=== PATIENT | female | born 2000 | race African-American/Black ===

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

== ENCOUNTER 2022-01-28 17:56 | Emergency (ER) | payer OTHER, SELFPAY ==
--- NOTE | 2022-01-28 18:05 | ED.EYEPROB ---
HPI - Eye Problem General Chief complaint: Eye Problems Stated complaint: right eye swelling/dryness Time Seen by Provider: 01/28/22 18:05 Source: patient Mode of arrival: ambulatory Limitations: no limitations History of Present Illness HPI Narrative: 21 y/o female presented for c/o right eye swelling for about 1 hour [employer]. States she was sitting down when she felt mild itching to the eye, she rubbed the eye then saw in the mirror the eye was swollen. Endorses frequent tearing. Denies continued itching, pain, denies FB sensation, photophobia or visual changes. She does not wear contact lenses. Denies sick contacts. Wears false eyelashes, but states she has had them in place for about 2 weeks. History of seasonal allergies and takes Gladys occasionally. chief complaint: eye pain Related Data Allergies Allergy/AdvReac Type Severity Reaction Status Date / Time No Known Allergies Allergy Verified 01/09/20 10:53 Review of Systems Review of Systems: CONSTITUTIONAL: Denies body aches, fever, chills EYES:Endorses swelling right eye ENT: Denies rhinorrhea, congestion, sore throat, or otalgia. CARDIOVASCULAR: Denies chest pain, palpitations RESPIRATORY: Denies cough or dyspnea. SKIN: Denies rash, itching, or wounds. NEUROLOGIC: Denies headache, numbness, tingling, or weakness. All systems reviewed & are unremarkable except as noted in HPI and below PMFSH Past Medical History Medical History No significant past medical history Surgical History Surgical History No significant past surgical history Family History Family History Father Diabetes mellitus Heart disease Hypertension Mother Alive and well Social History Social History Tobacco type: cigarettes Second hand tobacco smoke exposure: No Alcohol intake: never Substance use: never Gender identity (if verbalized by the patient): Female Sexual Orientation (if Verbalized by the Patient): Straight or Heterosexual Comments At time of signature, I have reviewed and agree with nursing past medical, surgical, social and family history unless otherwise noted. Please see nursing chart for further information. There is no relevant family history pertinent to the presenting complaint Exam Narrative: GENERAL: Well-appearing HEAD: Normocephalic, atraumatic. EYES: Right periorbital swelling without occlusion, clear drainage/ tearing; no conjunctival injection. EOMI. PERRLA. Lid eversion shows no FB. ENT: Mucous membranes pink and moist. No rhinorrhea. SKIN: Warm, dry, no rash. Normal skin turgor. NEURO: Alert and oriented x3 PSYCH: Normal affect. Course Course Emergency Course: Patient is aware of diagnosis, understands and agrees to treatment plan. Anticipatory guidance given. Patient agrees to follow-up as directed and is aware of reasons to seek care at the emergency department. Portions of this record may have been created with voice recognition software Level of Care: Express Care Visit MDM - Eye Problem MDM Narrative Medical decision making narrative: No apparent conjunctivitis or purulent drainage. Advised supportive measures, Rx steroid and will take benadryl prn. Reviewed s/s to go to the ER. v/u. She is stable and appropriate for outpt treatment and f/u. Differential Diagnosis Differential diagnosis: Likely corneal abrasion, conjunctivitis, acute iritis, periorbital cellulitis and other Discharge Plan Discharge Clinical Impression: Periorbital swelling Patient Disposition: Home, Self-Care Condition: Stable Additional Instructions: Avoid touching or rubbing your eye. Use over the counter lubricating eye drops as needed for irritation Use a cool washcloth/ice pack on your eye for comfort You m
[2022-01-28 18:06] VITALS: BP 126/82; PULSE 88; RESP 20; TEMP 37.1; O2SAT 100
== END 2022-01-28 18:24 | disposition home or self-care (01) ==
PROVIDERS: Emergency Provider Nurse Practitioner Family
DX: H05.221 Edema of right orbit (principal)
CPT/HCPCS: 99213; G0463